=== PATIENT | female | born 1990 | race Two or more races ===

== ENCOUNTER 2017-05-05 11:25 | Observation (INO) | payer MEDICAID | END 2017-05-05 13:30 | disposition home or self-care (01) | DRG 566 | LOC: LDRP 11:25 | PROVIDERS: ADMIT Specialist; ATTEND Specialist | DX: O48.0 Post-term pregnancy (principal); Z3A.40 40 weeks gestation of pregnancy | CPT/HCPCS: 59025; 76818; 81002; G0378 ==

== ENCOUNTER 2017-05-06 06:05 | Inpatient (IN) | payer MEDICAID ==
[~2017-05-06] VITALS: Ht 30.5 cm; Wt 0.5 kg
[2017-05-06] MEDS ORDERED: LACTATED RINGER'S 1,000 ML IV SCH (06:35)
[2017-05-06] MEDS ORDERED: PHISODERM TOP SOLN 240ML BTL TOP ONE (06:45)
[2017-05-06] MEDS ORDERED: DERMOPLAST 60ML BOTTLE TOP PRN (06:45)
[2017-05-06] MEDS ORDERED: WITCH HAZEL-GLYCERIN PAD TOP PRN (06:45)
[2017-05-06] MEDS ORDERED: LACT. RINGERS/OXYTOCIN 20UNITS 1,000 ML IV ONE (06:45)
[2017-05-06] MEDS ORDERED: NALBUPHINE HCL 10 MG/1ml INJECTION IV PRN (06:45)
[2017-05-06] MEDS ORDERED: PROMETHAZINE HCL 25 MG/ML 1ML IV PRN (06:45)
[2017-05-06 07:52] LABS: Basophils # (auto) 0 uL; Basophils % (auto) 0.3 % (0.0-2.0); CONDITION Y; Eosinophils # (auto) 0.1 uL; Eosinophils % (auto) 0.5 % (0.0-7.0); Hematocrit 38.4 % (36.0-46.0); Hemoglobin 13.3 g/dL (12.2-16.2); Lymphocytes # (auto) 1.9 uL; Lymphocytes % (auto) 13.6 % (10.0-50.0); Mean Corpuscular Hemoglobin 31.4 pg (28.0-32.0); Mean Corpuscular Hgb Conc. 34.5 g/dL (32.0-36.0); Mean Corpuscular Volume 91.1 fL (80.0-100.0); Mean Platelet Volume 8.3 fL (7.4-10.4); Monocytes # (auto) 0.7 uL; Monocytes % (auto) 4.6 % (0.0-12.0); Neutrophils # (auto) 11.5 uL; Platelet Count (auto) 347 10^3/uL (140-450); Red Cell Distribution Width 14.3 % (11.6-16.0); White Blood Cell 14.3 10^3/uL (4.4-10.8)
[2017-05-06 08:07] LABS: INR 0.82 (0.9-1.15); Partial Thromboplastin Time 28.1 sec (22.64-33.71)
[2017-05-06 08:15] LABS: Prothrombin Time 8.9 sec (9.37-12.3)
[2017-05-06 08:18] LABS: Urine Bilirubin Negative (Negative); Urine Blood 2+ /uL (Negative); Urine Color Yellow (Yellow); Urine Glucose Normal (Normal); Urine Ketone Negative (Negative); Urine Nitrite Negative (Negative); Urine RBC <1 /hpf (0 - 4); Urine Squamous Epithelial Cell FEW /hpf (<5); Urine Urobilinogen Normal (Negative); Urine pH 6.5 (5.0-8.0)
[2017-05-06 08:20] LABS: Albumin 2.4 g/dL (3.4-5.0); BUN/Creatinine Ratio 17.3; Bilirubin, Total 0.3 mg/dL (0.2-1.0); Potassium 3.7 mmol/L (3.5-5.1); Total Protein 7.4 g/dL (6.4-8.2); Uric Acid 5.2 mg/dL (2.6-6.0)
[2017-05-06] MEDS ORDERED: LIDOCAINE 2%HCL (LOCAL ANESTH.) INJ 20ML MDV ONE (11:17)
[2017-05-06] MEDS ORDERED: ACETAMINOPHEN 325 MG TAB PO PRN (12:00)
[2017-05-06] MEDS: IBUPROFEN 600 MG TAB PO PRN ×3 (13:40→21:38)
[2017-05-06 16:06] VITALS: BP 111/59
[2017-05-06 18:39] VITALS: BP 101/59
[2017-05-07 00:16] VITALS: BP 107/53
[2017-05-07 03:17] VITALS: BP 102/54
[2017-05-07] MEDS: IBUPROFEN 600 MG TAB PO PRN ×2 (03:38→10:05)
[2017-05-07 06:37] VITALS: BP 104/61
[2017-05-07] MEDS ORDERED: PREN-96 PO (07:33)
[2017-05-07] MEDS ORDERED: PRENTAB40 PO (07:35)
[2017-05-07] MEDS ORDERED: DOCUSATE CALCIUM 240 MG CAP PO SCH (10:00)
== END 2017-05-07 13:45 | disposition home or self-care (01) | DRG 560 ==
LOC: LDRP 06:05 → OBSVTOIN 06:05 → LDRP 08:42
PROVIDERS: ADMIT Specialist; ATTEND Specialist
PROC: 3E0S3CZ (ICD-10-PCS; principal; 2017-05-06)
PROC: 10D07Z6 Extraction of Products of Conception, Vacuum, Via Natural or Artificial Opening (ICD-10-PCS; 2017-05-06)
PROC: 0KQM0ZZ Repair Perineum Muscle, Open Approach (ICD-10-PCS; 2017-05-06)
PROC: 00HU33Z Insertion of Infusion Device into Spinal Canal, Percutaneous Approach (ICD-10-PCS; 2017-05-06)
DX: O77.0 Labor and delivery complicated by meconium in amniotic fluid (principal); O69.81X0 Labor and delivery complicated by cord around neck, without compression, not applicable or unspecified; O70.1 Second degree perineal laceration during delivery; Z3A.40 40 weeks gestation of pregnancy; Z37.0 Single live birth
CPT/HCPCS: 36415; 59025; 59409; 76818; 80053; 81001; 81002; 84550; 85025; 85610; 85730; 86850; 86900; 86901; 96361; 96366; G0378; J2590

== ENCOUNTER → 2018-11-09 | Outpatient (CLI) | payer MEDICAID ==
[~2018-11-09] MED LIST: PRENTAB40 PO
[2018-11-09 09:00] LABS: Basophils # (auto) 0 uL; Basophils % (auto) 0.2 % (0.0-2.0); Eosinophils # (auto) 0.1 uL; Eosinophils % (auto) 0.8 % (0.0-7.0); Hematocrit 37.7 % (36.0-46.0); Hemoglobin 12.8 g/dL (12.2-16.2); Lymphocytes # (auto) 1.8 uL; Lymphocytes % (auto) 17.4 % (10.0-50.0); Mean Corpuscular Hemoglobin 31.9 pg (28.0-32.0); Mean Corpuscular Volume 93.9 fL (80.0-100.0); Monocytes # (auto) 0.5 uL; Monocytes % (auto) 4.9 % (0.0-12.0); Neutrophils # (auto) 7.8 uL; Neutrophils % (auto) 76.7 % (37.0-80.0); Platelet Count (auto) 359 10^3/uL (140-450); Red Blood Cells 4.02 10^6/uL (4.0-5.20); Red Cell Distribution Width 13.1 % (11.8-14.3); White Blood Cell 10.2 10^3/uL (4.4-10.8)
== END | disposition home or self-care (01) ==
LOC: LAB 08:48
PROVIDERS: ATTEND Obstetrics & Gynecology
DX: O99.810 Abnormal glucose complicating pregnancy (principal); Z3A.00 Weeks of gestation of pregnancy not specified
CPT/HCPCS: 36415; 82951; 83036; 85025

== ENCOUNTER → 2019-01-15 | Outpatient (CLI) | payer MEDICAID ==
[2019-01-15 09:39] LABS: Basophils # (auto) 0 uL; Basophils % (auto) 0.2 % (0.0-2.0); Eosinophils # (auto) 0.1 uL; Eosinophils % (auto) 1.2 % (0.0-7.0); Hematocrit 40.2 % (36.0-46.0); Hemoglobin 13.5 g/dL (12.2-16.2); Lymphocytes # (auto) 1.9 uL; Lymphocytes % (auto) 21.7 % (10.0-50.0); Mean Corpuscular Hemoglobin 31.1 pg (28.0-32.0); Mean Corpuscular Hgb Conc. 33.5 g/dL (32.0-36.0); Mean Corpuscular Volume 92.7 fL (80.0-100.0); Monocytes # (auto) 0.5 uL; Monocytes % (auto) 5.3 % (0.0-12.0); Neutrophils # (auto) 6.2 uL; Neutrophils % (auto) 71.6 % (37.0-80.0); Nucleated Red Blood Cells % 0.1 %; Platelet Count (auto) 276 10^3/uL (140-450); Red Blood Cells 4.33 10^6/uL (4.0-5.20); Red Cell Distribution Width 13.2 % (11.8-14.3); White Blood Cell 8.7 10^3/uL (4.4-10.8)
== END | disposition home or self-care (01) ==
LOC: LAB 09:22
PROVIDERS: ATTEND Obstetrics & Gynecology
DX: O23.593 Infection of other part of genital tract in pregnancy, third trimester (principal); Z11.3 Encounter for screening for infections with a predominantly sexual mode of transmission; Z3A.36 36 weeks gestation of pregnancy
CPT/HCPCS: 36415; 85025

== ENCOUNTER → 2019-01-19 | Outpatient (CLI) | payer MEDICAID | END | disposition home or self-care (01) | LOC: LAB 08:35 | PROVIDERS: ATTEND Obstetrics & Gynecology | DX: O23.593 Infection of other part of genital tract in pregnancy, third trimester (principal); Z3A.37 37 weeks gestation of pregnancy | CPT/HCPCS: 87081 ==

== ENCOUNTER 2019-02-01 10:56 | Observation (INO) | payer MEDICAID | END 2019-02-01 13:10 | disposition home or self-care (01) | DRG 566 | LOC: LDRP 10:56 | PROVIDERS: ADMIT Obstetrics & Gynecology; ATTEND Obstetrics & Gynecology | DX: O48.0 Post-term pregnancy (principal); Z3A.40 40 weeks gestation of pregnancy | CPT/HCPCS: 59025; 76818; 81002; G0378 ==

== ENCOUNTER 2019-02-02 00:46 | Inpatient (IN) | payer MEDICAID | END 2019-02-03 12:00 | disposition home or self-care (01) | LOC: LDRP 00:46 | PROC: 10E0XZZ Delivery of Products of Conception, External Approach (ICD-10-PCS; principal; ~2019-02-02) | DX: O69.1XX0 Labor and delivery complicated by cord around neck, with compression, not applicable or unspecified (principal); O71.4 Obstetric high vaginal laceration alone; Z37.0 Single live birth; Z3A.40 40 weeks gestation of pregnancy ==

== ENCOUNTER 2020-02-13 13:21 | Emergency (ER) | payer SELFPAY ==
[~2020-02-13] VITALS: Ht 152.4 cm; Wt 77.1 kg
[2020-02-13 13:43] VITALS: BP 120/77
== END 2020-02-13 16:46 | disposition home or self-care (01) ==
LOC: ER 13:21
DX: S50.11XA Contusion of right forearm, initial encounter (principal); Z79.899 Other long term (current) drug therapy; W19.XXXA Unspecified fall, initial encounter; Y93.89 Activity, other specified; Y92.89 Other specified places as the place of occurrence of the external cause; Y99.8 Other external cause status
CPT/HCPCS: 73090